=== PATIENT | female | born 1995 | race Caucasian/White ===

== ENCOUNTER 2022-06-19 15:42 | Emergency (ER) | payer BC ==
[~2022-06-19] VITALS: Ht 160 cm; Wt 63.5 kg
[2022-06-19] MEDS ORDERED: IV NORMAL SALINE 1000 ML BAG IV ONE (16:00)
[2022-06-19] MEDS ORDERED: KETOROLAC TROMETHAMINE 15 MG INJ IVP ONE (16:00)
--- NOTE | 2022-06-19 16:00 | NUR ---
RECEIVED PT; STATES RLQ ABD. PAIN SINCE 8AM; PAIN IS 8/10 DULL AND CONSTANT. PT IS CRYING D/T PAIN.
[2022-06-19] MEDS ORDERED: KETOROLAC TROMETHAMINE 30 MG INJ ONE ×2 (16:10→18:16)
[2022-06-19 16:13] LABS: HEMATOCRIT 42.3 % (31.2-41.9); MEAN CORPUSCULAR HEMOGLOBIN 30.5 uug (24.7-32.8); MEAN CORPUSCULAR VOLUME 89.4 fL (75.5-95.3); PLATELET COUNT (AUTO) 328 K/uL (179-408)
[2022-06-19 16:31] LABS: *BILIRUBIN,URIN NEGATIVE (NEGATIVE); *BLOOD, URINE NEGATIVE (NEGATIVE); *CLARITY,URINE SLIGHTLY CLOUDY (CLEAR); *COLOR,URINE YELLOW (YELLOW); *KETONES,URINE NEGATIVE (NEGATIVE); *UROBILINOGEN,URINE 0.2 E.U./dl (NORMAL); LEUKOCYTE ESTERASE ,URINE NEGATIVE (NEGATIVE); NITRITE, URINE NEGATIVE (NEGATIVE); UGLUCOSE NEGATIVE (NEGATIVE)
[2022-06-19 16:31] LABS: CREATININE 0.6 mg/dL (0.6-1.3); POTASSIUM 3.7 mmol/L (3.5-5.1)
[2022-06-19 16:32] LABS: *URINE HCG, QUAL NEGATIVE (NEGATIVE)
[2022-06-19 16:37] LABS: BACTERIA,URINE FEW /HPF (NONE SEEN); RBC,URINE NONE SEEN /HPF (0-3); SQUAMOUS EPITHELIAL CELL,UR FEW /HPF (NONE SEEN); URINE AMORPHOUS URATE MODERATE /HPF; WBC,URINE NONE SEEN /HPF (0-3)
[2022-06-19 16:37] LABS: BILIRUBIN,DIRECT 0.1 mg/dL (0.0-0.2); BILIRUBIN,TOTAL 0.3 mg/dL (0.2-1.0); TOTAL PROTEIN, SERUM 6.5 g/dL (6.4-8.2)
[2022-06-19] MEDS ORDERED: MORPHINE SULFATE 2 MG/1 ML DISP.SYRIN IV ONE (17:45)
[2022-06-19] MEDS ORDERED: ONDANSETRON 4 MG/2 ML VIAL IV ONE (17:45)
[2022-06-19] MEDS ORDERED: ONDANSETRON 4 MG/2 ML VIAL ONE (17:48)
[2022-06-19] MEDS ORDERED: MORPHINE SULFATE 4 MG/1 ML DISP.SYRIN ONE (17:49)
[2022-06-19] MEDS ORDERED: KETOROLAC TROMETHAMINE 30 MG INJ IVP ONE (18:15)
[2022-06-19] MEDS ORDERED: TRAM50TA2 PO (18:16)
[2022-06-19] MEDS ORDERED: NAPR500T6 PO (18:16)
[2022-06-19] MEDS ORDERED: HYDROMORPHONE 1 MG/1 ML DISP.SYRIN IV ONE (19:00)
[2022-06-19] MEDS ORDERED: HYDROMORPHONE 1 MG/1 ML DISP.SYRIN ONE (19:03)
--- NOTE | 2022-06-19 19:27 | NUR ---
SBAR TO ROBYN JARRELL.
--- NOTE | 2022-06-19 19:38 | NUR ---
IV removed. Catheter intact and site benign. Pressure and 4x4 gauze applied to site. No bleeding noted.
--- NOTE | 2022-06-19 19:40 | NUR ---
Patient discharged to home in stable condition. Written and verbal after care instructions given. Patient verbalizes understanding of instructions. Stressed follow up or return to ER for worsening s/s.
[2022-06-19 19:42] VITALS: BP 128/75
== END 2022-06-19 19:42 | disposition home or self-care (01) ==
LOC: ER 15:42
DX: N83.201 Unspecified ovarian cyst, right side (principal)
CPT/HCPCS: 99284; 74176; 96374; 96375; 76856; 96361; 80076; 80048; 81001; 84703; 83690; 85025; 36415; J1885 ×2; J2405; J1170; J2270; J7040; A4663